=== PATIENT | female | born 1970 | race Caucasian/White ===

== ENCOUNTER 2018-10-15 13:51 | Outpatient (CLI) | payer OTHER ==
--- NOTE | 2018-10-15 14:21 | RAD ---
THORACIC SPINE RADIOGALTH SERIES: 10/15/18 INDICATION: Disability evaluation. FINDINGS: There is mild multilevel degenerative change of the thoracic spine. No compression fracture or sublu xation. IMPRESSION: No acute osseous abnormality of the thoracic spine. POS: C
== END 2018-10-15 13:52 | disposition home or self-care (01) ==
LOC: NAV RAD 13:51
PROVIDERS: ATTEND Family Medicine
DX: M54.14 Radiculopathy, thoracic region (principal)
CPT/HCPCS: 72072